=== PATIENT | female | born 1970 | race Caucasian/White ===

== ENCOUNTER 2017-09-02 19:11 | Emergency (ER) | payer MEDICAID ==
[~2017-09-02] VITALS: Ht 154.9 cm; Wt 78.9 kg
[2017-09-02 19:21] VITALS: Ht 154.9 cm; Wt 78.9 kg
[2017-09-02 20:59] VITALS: BP 120/68
== END 2017-09-02 20:59 | disposition home or self-care (01) ==
LOC: ED 19:11
DX: A54.9 Gonococcal infection, unspecified (principal); A74.9 Chlamydial infection, unspecified; Z88.5 Allergy status to narcotic agent; Z88.6 Allergy status to analgesic agent
CPT/HCPCS: J0696

== ENCOUNTER 2018-01-18 16:50 | Emergency (ER) | payer OTHER ==
[~2018-01-18] VITALS: Ht 162.6 cm; Wt 82.1 kg
[2018-01-18 17:14] VITALS: Ht 162.6 cm; Wt 82.1 kg
[2018-01-18 17:57] VITALS: BP 112/66
== END 2018-01-18 17:57 | disposition home or self-care (01) ==
LOC: ED 16:50
DX: N39.0 Urinary tract infection, site not specified (principal); J45.909 Unspecified asthma, uncomplicated; Z11.3 Encounter for screening for infections with a predominantly sexual mode of transmission; Z88.6 Allergy status to analgesic agent; Z88.5 Allergy status to narcotic agent
CPT/HCPCS: 87491; 87591